=== PATIENT | male | born 1950 | race Caucasian/White ===

== ENCOUNTER → 2016-09-09 | Outpatient (CLI) | payer MEDICARE, OTHER ==
--- NOTE | 2016-09-09 09:58 | RADIOLOGY REPORT (SQ) ---
EXAM DESCRIPTION: U/S ABDOMEN LIMITED W/O DOP COMPLETED DATE/TIME: 09/09/2016 9:44 am REASON FOR STUDY: MORBID OBESITY (E66.01), UPPER ABD PAIN (R10.10), PRE OP (Z01.818) E66.01 MORBID (SEVERE) OBESITY DUE TO EXCESS CALORIES R10.10 UPPER ABDOMINAL PAIN, UNSPECIFIED Z01.818 ENCOUNTER FOR OTHER PREPROCEDURAL EXAMINATION COMPARISON: None. TECHNIQUE: Dynamic and static grayscale images acquired of the abdomen and recorded on PACS. Additio nal selected color Doppler and spectral images recorded. LIMITATIONS: Study is limited due to the patient's body habitus. FINDINGS: PANCREAS: The pancreas could not be visualized. LIVER: There is limited visualization of the liver. No obvious masses are identified. LIVER VASCULATURE: Portal vein could not be visualized. GALLBLADDER: No stones. Normal wall thickness. No pericholecystic fluid. ULTRASOUND-DETECTED MENEZES'S SIGN: Negative. INTRAHEPATIC DUCTS AND COMMON DUCT: Common bile duct could not be visualized. No dilated intrahepati c bile ducts are identified. INFERIOR VENA CAVA: IVC could not be visualized. AORTA: Abdominal aorta was incompletely visualized. No abdominal aortic aneurysm was identified in t he visualized portions of the abdominal aorta. RIGHT KIDNEY: Normal size. Normal echogenicity. No solid or suspicious masses. No hydronephrosis. No calcifications. PERITONEAL AND RIGHT PLEURAL SPACE: No ascites or effusions. OTHER: No other significant findings. IMPRESSION: Limited study as noted above. No definite intra-abdominal abnormalities were identified . Findings as noted above. TECHNICAL DOCUMENTATION: JOB ID: [id number] [employer]- All Rights Reserved
== END ==
LOC: RAD 07:18
PROVIDERS: ATTEND Surgery
PROC: BW40ZZZ Ultrasonography of Abdomen (ICD-10-PCS; principal; 2016-09-09)
DX: E66.01 Morbid (severe) obesity due to excess calories (principal); R10.10 Upper abdominal pain, unspecified; Z01.818 Encounter for other preprocedural examination
CPT/HCPCS: 76705